=== PATIENT | female | born 1995 | race Caucasian/White ===

== ENCOUNTER → 2020-11-02 | Outpatient (CLI) | payer BC ==
--- NOTE | 2020-11-02 16:05 | XR ---
EXAMINATION TYPE: XR shoulder complete LT DATE OF EXAM: 11/02/2020 CLINICAL HISTORY: Pain TECHNIQUE: Three views of the left shoulder are obtained. COMPARISON: None. FINDINGS: There is no acute fracture/dislocation evident in the left shoulder. The acromioclavicula r and glenohumeral joint spaces appear within normal limits. The visualized ribs are intact and unre markable. No soft tissue swelling. IMPRESSION: Normal left shoulder radiograph.
== END | disposition home or self-care (01) ==
LOC: RADXRMAIN 12:40
PROVIDERS: ATTEND Family Medicine
DX: M25.512 Pain in left shoulder (principal)

== ENCOUNTER → 2022-03-10 | Outpatient (CLI) | payer BC ==
--- NOTE | 2022-03-10 12:32 | XR ---
EXAMINATION TYPE: XR spine complete AP and Lat DATE OF EXAM: 03/10/2022 COMPARISON: NONE HISTORY: Pain TECHNIQUE: AP and lateral views of the cervical, thoracic, and lumbar spine submitted FINDINGS: Cervical spine: Tiny cervical ribs noted bilaterally. Vertebral body height and disc interspaces are maintained. No c ompression deformities. Odontoid intact. Prevertebral soft tissue structures are within normal limits . Thoracic spine: Pedicles intact. Vertebral body height and disc spaces maintained. Impression normal knees. Lumbar spine: Vertebral body height and disc interspaces are maintained. There is a minimal anterior listhesis of L5 relative to S1. Oblique views are submitted but there is concern for spondylolysis. IMPRESSION: 1. Minimal anterolisthesis L5 on S1 with probable spondylolysis follow-up with either CT scan or MRI as clinically warranted.
== END | disposition home or self-care (01) ==
LOC: RADXRMAIN 10:28
PROVIDERS: ATTEND Nurse Practitioner Family
DX: M43.17 Spondylolisthesis, lumbosacral region (principal)
CPT/HCPCS: 72082

== ENCOUNTER → 2022-04-04 | Outpatient (CLI) | payer BC ==
--- NOTE | 2022-04-04 07:09 | MR ---
EXAMINATION TYPE: MR thoracic spine wo con DATE OF EXAM: 04/04/2022 COMPARISON: Outside Thoracic spine x-ray March 25, 2022 HISTORY: Mid back pain TECHNIQUE: Multiplanar, multisequence imaging of thoracic spine is performed without contrast FINDINGS: Spinal cord shows normal course, caliber, and signal as it courses the thoracic spine. Arvin tebral body heights and alignment are satisfactory. Disc space height and hydration are maintained. N o large posterior disc herniations are seen. Bone marrow signal intensity is preserved. Review of the axial images shows no significant spinal canal stenosis or neural foraminal narrowing at any thoracic level. Visualized portion of the thorax and upper abdomen show no obvious abnormalit y. IMPRESSION: No significant abnormality is seen to account for patient's symptoms of mid back pain.
== END | disposition home or self-care (01) ==
LOC: RADMRIMAIN 06:10
PROVIDERS: ATTEND Nurse Practitioner Family
DX: M54.14 Radiculopathy, thoracic region (principal)
CPT/HCPCS: 72146